=== PATIENT | female | born 2000 | race Caucasian/White ===

== ENCOUNTER 2023-10-22 23:31 | Emergency (ER) | payer OTHER, SELFPAY ==
[2023-10-22 23:32] VITALS: BP 133/91; PULSE 92; RESP 16; TEMP 36.6; O2SAT 100; BMI 27.0
--- NOTE | 2023-10-22 23:58 | EDS_ITS ---
HPI History of Present Illness Chief Complaint: Eye Problem Informant: patient Narrative Narrative: Patient presenting with moderate to severe right eye pain. No injury. She states earlier this morning, she noticed that she had a patch of visual field from her right eye that seemed cloudy, blurry. She had in contacts, she wears monthly's, these were already used for a couple of weeks but then she forgot them at her parents in contact solution, now she just put them back in, and has been wearing them for a short time. She took them out this morning, and has had the same cloudy, blurry area ever since. She did not have pain until tonight when it started gradually about 1-2 hours ago and is really uncomfortable. It hurts more to open her eye, better to keep it shut. She denies any discharge except for tearing. Denies any suspicion for foreign body/injury. PFSH PFSH Medical History no medical history no medical history Home Medications ciprofloxacin HCl 0.3 % eye drops See Rx Instructions RIGHT EYE .COMPLEX #5 mL 1 12/24/22 [Rx Last Taken Unknown] Allergy/AdvReac Type Severity Reaction Status Date / Time pineapple AdvReac MOUTH Verified 10/22/23 23:34 IRRITATION Surgical History no surgical history Social History Smoking Status: Never smoker ROS ROS ED Constitutional Constitutional ED: Denies chills or fever(s) Eyes Eyes: Reports as per HPI, blurry vision right and eye pain; Denies diplopia ENT ENT ED: Denies ear pain, rhinorrhea or sore throat Neurologic Neurologic: Denies headache(s), paresthesias or weakness EXAM Physical Exam Const Vital Signs: 10/22/23 23:32 Temperature 97.8 F Temperature Source Temporal Pulse Rate 92 Respiratory Rate 16 Blood Pressure 133/91 H Blood Pressure Mean 105 Pulse Ox 100 Oxygen Delivery Method Room Air Positive well nourished and well developed General Appearance ED: well developed and NAD HEENT atraumatic; Negative for tenderness Mouth ED: Yes oral and palatal mucosa normal and Yes lips normal Mouth: oral and palatal mucosa normal and lips normal Eyes PERRL and EOMs intact bilaterally Eyes Narrative: Initial gross exam limited by blepharospasm. Neck no lymphadenopathy and supple Neuro oriented x3, CN's II-XII intact bilaterally and gait normal Sensorium / Orientation: alert Skin Lesions: no lesions Rashes: no rashes MDM MDM MDM Narrative Medical decision making narrative: Visual acuities performed with the patient's glasses, corrected, no contact lenses in. She was 20/20 with her good left eye and 20/200 with the right eye. She states she sees what looks like a white film. We then placed tetracaine 3 drops, which relieved her pain and blepharospasm and I was able to evaluate her with slit lamp. On exam, the anterior chamber is deep and quiet, I see no cell or flare, she does have injected conjunctive up without discharge or chemosis in the right eye. With fluorescein staining, she has a speckled inflamed appearance of the central cornea in the distribution of the contact lens that used to be in her eye, she wears soft lenses, and it is in a circular pattern, sparing the peripheral cornea. No serpiginous characteristics to suggest HSV. There is no laceration or foreign body, I see no ulcers. Given this, I am prescribing her Ciloxan drops, we have some here in the pharmacy so we will give her 2 drops now along with instructions for use until she can see ophthalmology in follow-up, advised to call for appointment as soon as the weekend is over, and to stay out of her contacts until she is told otherwise. Discharge Plan Triage Chief Complaint: Eye Problem ED Provider: Srikanth Munoz Dx/Rx/DC Orders Clinical Impression: Keratitis, right Instructions: ED Corneal Injury, Contact Lens Prescriptions: New ciprofloxacin HCl 0.3 % drops See Rx Instructions .ROUTE .COMPLEX Qty: 5 0RF Rx Instructions: put 1-2 drps in affected eye(s) every 2hr up to 8 times/day x2days; then 4 times/day x5days Primary Care Provider: NOT,DEFINED Referrals: Chema Garces MD [Med Staff - Active Staff] - As soon as possible (Call Tuesday morning and tell them you were seen in the ER for keratitis advised to be seen a soon as possible) Activity Restrictions/Additional Instructions: Ciprofloxacin eyedrops: 1-2 drops every 2 hours while awake for the first 2 days, then every 4 hours until you are seen by ophthalmology. Discard the most recent pair of contacts you were just wearing. Do not put in any contacts until you are advised to do so by ophthalmology. Glasses are okay to wear. Disposition Disposition: Home, Self Care
[2023-10-23] MEDS: Tetracaine 0.5% Ophthalmic Bottle 2 DRP RIGHT EYE (00:18)
[2023-10-23] MEDS: Fluorescein 1 MG STRIP 1 STRIP RIGHT EYE (00:18)
[2023-10-23] MEDS: Ciprofloxacin 0.3% 2.5ml Bottle 2 DRP RIGHT EYE (00:44)
== END 2023-10-23 00:57 | disposition home or self-care (01) ==
LOC: ED 10-23 00:52
PROVIDERS: Emergency Provider Emergency Medicine; Visit Provider Emergency Medicine
DX: H16.9 Unspecified keratitis (principal)
CPT/HCPCS: 92285; 99283